=== PATIENT | female | born 1980 | race Caucasian/White ===

== ENCOUNTER 2017-02-22 01:31 | Emergency (ER) | payer BC, OTHER ==
[~2017-02-22] VITALS: Ht 170.2 cm; Wt 68.2 kg
[~2017-02-22 01:31] MED LIST: PRENATAL1 TA1 PO
[2017-02-22 01:39] VITALS: PULSE 70; TEMP 97
[2017-02-22] MEDS ORDERED: MACROBID 1100 MG/CAP PO (01:43)
[2017-02-22] MEDS ORDERED: PHARMASSURE MA500 MG PO (01:44)
[2017-02-22] MEDS ORDERED: MAGNESIUM250 M1 PO (01:44)
[2017-02-22] MEDS ORDERED: SLOW FE142 MG PO (01:44)
[2017-02-22 01:57] LABS: PH 8 (5-8); SQUAMOUS EPITHELIAL 0-2 /hpf; URINE APPEARANCE Clear; URINE BACTERIA None Seen /hpf; URINE BILIRUBIN Negative (NEGATIVE); URINE BLOOD Negative (NEGATIVE); URINE COLOR Straw; URINE GLUCOSE Negative (NEGATIVE); URINE KETONE Negative (NEGATIVE); URINE RBC 0-2 /hpf; URINE UROBILINOGEN Negative (NEGATIVE); URINE WBC 0-2 /hpf
[2017-02-22 02:00] LABS: BASO # 0.1 (0.0-0.2); BASO % 0.8 % (0.0-2.0); EOS # 0.2 (0.0-0.7); EOS % 2.3 % (0-4.0); GRAN # 6.1 (1.4-6.5); GRAN % 70.7 % (42.2-75.2); HEMATOCRIT 30.8 % (37.0-47.0); HEMOGLOBIN 10.6 g/dl (12.5-16.0); LYMPH # 1.6 (1.2-3.4); LYMPH % 18.9 % (20.0-51.0); MEAN CELL VOLUME 90 fl (80.0-100.0); MEAN CORPUSCULAR HEMOGLOBIN 31 pg (27.0-31.0); MEAN CORPUSCULAR HGB CONC 34 g/dl (33.0-37.0); MEAN PLATELET VOLUME 10.2 fl (7.4-10.4); MONO # 0.5 (0.1-0.6); MONO % 5.5 % (1.7-9.3); PLATELET COUNT 242 K/mm3 (130-400); RED BLOOD COUNT 3.43 M/mm3 (4.10-5.30); REDCELL DISTRIBUTION WIDTH-CV 13.8 % (11.5-14.5); WHITE BLOOD COUNT 8.7 K/mm3 (4.8-10.8)
[2017-02-22 02:12] LABS: ADJUSTED CALCIUM 10.5 mg/dL (8.4-10.2); ALBUMIN 3.5 gm/dL (3.5-5.0); BILIRUBIN,TOTAL 0.7 mg/dL (0.0-1.0); CALCIUM 10.1 mg/dL (8.4-10.2); CREATININE, serum 0.4 mg/dL (0.52-1.25); POTASSIUM 3.4 mmol/L (3.4-5.0); TOTAL PROTEIN 6.8 gm/dL (6.4-8.2)
[2017-02-22 02:50] VITALS: BP 105/48
== END 2017-02-22 03:00 | disposition home or self-care (01) ==
LOC: COL.ER 01:31 → LDRO 01:33 → COL.ER 03:00
PROVIDERS: Emergency Medicine
DX: O99.89 Other specified diseases and conditions complicating pregnancy, childbirth and the puerperium (principal); R19.7 Diarrhea, unspecified; R11.0 Nausea; Z3A.35 35 weeks gestation of pregnancy
CPT/HCPCS: J2550; J7030

== ENCOUNTER 2017-02-24 14:16 | Inpatient (IN) | payer BC, OTHER ==
[~2017-02-24] VITALS: Ht 170.2 cm; Wt 70.5 kg
[~2017-02-24 14:16] MED LIST changes: +MACROBID 1100 MG/CAP PO; +MAGNESIUM250 M1 PO; +PHARMASSURE MA500 MG PO; +SLOW FE142 MG PO
[2017-03-07] MEDS ORDERED: FLONASE NASAL S16 GM (22:06)
[2017-03-13] VITALS (16 sets, daily range): BP systolic 105–126; BP diastolic 65–84; PULSE 73–91; TEMP 97.4–98.5
[2017-03-13 12:28] LABS: MEAN CELL VOLUME 89 fl (80.0-100.0); MEAN CORPUSCULAR HGB CONC 34 g/dl (33.0-37.0); MEAN PLATELET VOLUME 10.5 fl (7.4-10.4); PLATELET COUNT 283 K/mm3 (130-400); REDCELL DISTRIBUTION WIDTH-CV 14.5 % (11.5-14.5); WHITE BLOOD COUNT 9.5 K/mm3 (4.8-10.8)
[2017-03-13 12:42] LABS: HEMATOCRIT 32.9 % (37.0-47.0); HEMOGLOBIN 11.1 g/dl (12.5-16.0); MEAN CORPUSCULAR HEMOGLOBIN 30 pg (27.0-31.0)
[2017-03-13 12:43] LABS: ADD PATHOLOGY DIFF REVIEW NO
[2017-03-13 13:18] LABS: BAND 24 % (0-10); EOSINOPHIL 1 % (0-4); NEUTROPHILS 61 % (42.0-75.2); TOTAL CELLS COUNTED 100
[2017-03-13 13:20] LABS: PLATELET ESTIMATE NORMAL (NORMAL)
[2017-03-14 02:10] VITALS: BP 23/70; PULSE 71; TEMP 97.6
[2017-03-14 07:12] VITALS: BP 112/68; PULSE 77; TEMP 98.4
[2017-03-14] MEDS ORDERED: IBU800 M1 PO (09:01)
[2017-03-14] MEDS ORDERED: PERCOCET 325 MG1 TA2 PO (09:01)
[2017-03-14 12:05] VITALS: BP 108/64; PULSE 76; TEMP 98.1
[2017-03-14 15:23] VITALS: BP 114/66; PULSE 78; TEMP 97.4
[2017-03-14 19:30] VITALS: BP 128/83; PULSE 88; TEMP 97.1
[2017-03-15 10:00] VITALS: BP 108/64; PULSE 98; TEMP 98.1
[2017-03-15 16:00] VITALS: BP 122/72; PULSE 95
[2017-03-15 19:50] VITALS: BP 120/66; PULSE 93; TEMP 97.6
[2017-03-16 08:30] VITALS: BP 119/71; PULSE 74; TEMP 97.4
== END 2017-03-16 12:30 | disposition home or self-care (01) | DRG 766 ==
LOC: OB 03-13 11:58 → EDSTATUS 03-27 11:57 → LDRO 03-27 14:14
PROVIDERS: Obstetrics & Gynecology
PROC: 10D00Z1 Extraction of Products of Conception, Low, Open Approach (ICD-10-PCS; principal; 2017-03-13)
DX: O99.824 Streptococcus B carrier state complicating childbirth (principal); O09.523 Supervision of elderly multigravida, third trimester; Z3A.38 38 weeks gestation of pregnancy; Z37.0 Single live birth
CPT/HCPCS: J0690; J2270; J2370; J2405; J2590; J7120

== ENCOUNTER 2017-03-07 21:28 | Outpatient (CLI) | payer BC ==
[~2017-03-07] VITALS: Ht 170.2 cm; Wt 70.0 kg
[2017-03-07 21:56] VITALS: BP 122/69; PULSE 75; TEMP 98.3
[2017-03-07] MEDS ORDERED: FLONASE NASAL S16 GM (22:06)
== END 2017-03-07 22:40 | disposition home health service (06) ==
LOC: LDRO 21:28
DX: O09.523 Supervision of elderly multigravida, third trimester (principal); Z3A.37 37 weeks gestation of pregnancy

== ENCOUNTER 2017-07-16 08:00 | Outpatient (RCR) | payer BC, OTHER ==
[~2017-07-16 08:00] MED LIST changes: +FLONASE NASAL S16 GM; +IBU800 M1 PO; +PERCOCET 325 MG1 TA2 PO
== END 2017-07-16 10:06 ==
LOC: MKS.ESL.PT 08:00
DX: N81.84 Pelvic muscle wasting (principal)

== ENCOUNTER → 2018-09-02 | Outpatient (CLI) | payer OTHER | LOC: MC.RAD 13:53 | DX: N60.01 Solitary cyst of right breast (principal); N64.59 Other signs and symptoms in breast | CPT/HCPCS: G0279 ==

== ENCOUNTER → 2020-10-10 | Outpatient (CLI) | payer OTHER | LOC: MC.RAD 09-01 14:15 | DX: Z12.31 Encounter for screening mammogram for malignant neoplasm of breast (principal) ==

== ENCOUNTER → 2024-03-31 | Outpatient (CLI) | payer OTHER | LOC: MC.RAD 11:01 | DX: Z12.31 Encounter for screening mammogram for malignant neoplasm of breast (principal) ==